=== PATIENT | male | born 1995 | race Caucasian/White ===

== ENCOUNTER 2025-02-20 08:27 | Outpatient (CLI) | payer OTHER, SELFPAY ==
--- NOTE | 2025-02-20 08:29 | CA_ITS ---
APPROVED REPORT EXAM: Comprehensive 2D, Doppler, and color-flow Echocardiogram Diving Fisher: Chloé Freeman RVT Ht: 5 ft 5 in Wt: 150lbs BSA: 1.75 BP: 123/65 mmHg Indications: CHEST PAIN 2D Dimensions LA Volume 28.90 mL LA Volume Index 16.51 mL/m2 (M/F) 16-34 M-Mode Dimensions RVDd 2.88 cm (0.9-2.6) LA Diam 2.83 cm (1.9-4.0) LVDd 5.23 cm (3.5-5.7) LVDs 3.69 cm (3.5-5.7) IVSd 0.50 cm (0.6-1.1) PWd 0.57 cm (0.6-1.1) EF (Teich) 55.90% FS 29.40% EDV (Teich) 131.20 mL TAPSE 2.83 (<1.7) ESV (Teich) 57.80 mL LV Diastology E Decel Time 217 (160-240 msec) E/A Ratio 1.4 Aortic Valve ROB Index 1.53 cm2/m2 AoV Peak Cortez. 103.0 (50-130 cm/s) AO Peak GR. 4.30 mmHg AO Mean GR. 2.30 (<5 mmHg) AO VTI 17.8 (18-25 cm) ROB (VTI) 2.74 (2.5-4.5 cm2) Mitral Valve MV E Max Cortez. 74.0 (40-130 cm/s) MV A Velocity 53.0 (40-130 cm/s) E/A Ratio 1.40 MV PHT 63.0 ms Pulmonary Valve PV Peak Velocity 69.0 (50-150 cm/s) Tricuspid Valve TR P. Velocity 176.00 cm/s RAP Estimate 8.00 mmHg RVSP 20.40 mmHg Left Ventricle The left ventricle is normal size. Left ventricular systolic function is normal. The left ventricular ejection fraction is within the normal range. There is normal left ventricular wall thickness. There is normal LV segmental wall motion. The left ventricular diastolic function is normal. LVEF is 55% Right Ventricle The right ventricle is borderline dilated. The right ventricular systolic function is normal. Atria The left atrium size is normal. The right atrium size is normal. There is no color Doppler evidence of interatrial shunt. Aortic Valve The aortic valve opens well. There is no hemodynamically significant aortic valvular stenosis. No aortic regurgitation is present. Mitral Valve The mitral valve is normal in structure. No evidence of mitral valve stenosis. Trace mitral regurgitation is present. Tricuspid Valve The tricuspid valve leaflets are thin and pliable. Trace tricuspid regurgitation. There is insufficient TR jet to estimate RVSP. Pulmonic Valve The pulmonary valve is grossly normal in structure. Trace pulmonic valve regurgitation is present. Great Vessels The aortic root is normal in size. IVC is normal in size and collapses >50% with inspiration. Pericardium There is no pericardial effusion. Other Information Study Quality: Fair Conclusion Normal biventricular systolic function. Borderline RV dilation. No significant valvular stenosis or regurgitation. In the setting of borderline RV dilation, further evaluation with limited TTE + agitated saline (bubble study), as well as pulmonary and/or sleep workup, may be suggested. Electronically signed by : Joana Webb MD 02/21/2025 23:12:19
[2025-02-20 09:00] VITALS: PULSE 82; PULSE 86
[2025-02-20] MEDS: ALBUTEROL 0.083% 2.5 MG/3 ML NEB IH (09:00)
--- NOTE | 2025-02-20 10:09 | XR_ITS ---
FINAL REPORT TECHNIQUE: Chest PA & Lateral CLINICAL HISTORY: PAIN soa tightness COMPARISON: None FINDINGS: 2 views of the chest were performed. The heart size is normal. The mediastinum is within normal limits. There is no acute cardiopulmonary process. There are no pleural effusions. There is no pneumothorax. The bony thorax appears intact. IMPRESSION: No acute cardiopulmonary process. Reviewed, Interpreted and Dictated by Brigido Sanchez MD Transcribed by Mile Johnson Authenticated and [facility]
== END 2025-02-20 23:59 | disposition home or self-care (01) ==
PROVIDERS: Visit Provider Chiropractor
DX: I51.7 Cardiomegaly (principal)
CPT/HCPCS: 71046; 93306; 94060; 94640